=== PATIENT | female | born 1990 | race African-American/Black ===

== ENCOUNTER 2016-12-28 09:11 | Emergency (ER) | payer MEDICAID, OTHER ==
[~2016-12-28] VITALS: Ht 180.3 cm; Wt 98.0 kg
[~2016-12-28 09:11] MED LIST: BACT800T5 PO; CORTI10A LEFT EAR
[2016-12-28 09:12] VITALS: BP 150/70; PULSE 83; RESP 14; TEMP 97.5; O2SAT 97
[2016-12-28] MEDS ORDERED: [UNRECOGNIZED DRUG - OTHER] (09:25)
--- NOTE | 2016-12-28 09:32 | PD ---
HPI Chief Complaint: GI Complaint Time Seen by Provider: 09:27 Travel History International Travel<30 days: No Contact w/Intl Traveler<30days: No Traveled to known affect area: No History of Present Illness HPI 26 -year-old female presents with body aches, nausea, cough and congestion over the past couple of days. She notes multiple sick contacts with her kids with similar symptoms. She states her kids got medication and are now better. She denies other concurrent complaints. She feels worse when she moves around. She denies increase in her nebulizer use and has not used it during this episode. She states she doesn't follow with a doctor regularly. She states her last menstrual cycle was in mid October and has not taken a test yet as she has irregular cycles. She had one prior that everything was okay with the but her daughter had to stay in the hospital little bit and also had pyloric stenosis at 1 week PFSH Past Medical History Asthma: Yes Diminished Hearing: No Respiratory: Yes (ASTHMA) ?: Unknown LMP: October : 1 Para: 1 Past Surgical History Tonsillectomy: Yes Social History Alcohol Use: No (VERY RARELY) Tobacco Use: No Substance Use: No (PT DENIES) Allergies-Medications (Allergen,Severity, Reaction): Coded Allergies: Latex (Verified Allergy, Intermediate, Rash, 03/22/16) Reported Meds & Prescriptions Reported Meds & Active Scripts Active Macrobid (Nitrofurantoin Monoh/Nitrofur Macro) 100 Mg Cap 100 Mg PO BID 5 Days Reported [nebuliver] Review of Systems Except as stated in HPI: all other systems reviewed are Neg Physical Exam Narrative General: No apparent distress, well appearing ENT: Posterior oropharyngx clear without exudate or erythema, external auditory canals are normal. Bilateral TM clear Neck: Neck is supple, no meningeal signs, trachea is midline Cardiovascular: Regular rate and rhythm Lungs: No increased respiratory effort noted, CTA bilaterally Abdomen: Soft, NT, ND Extremities: No edema Neuro: Awake, motor and sensation grossly intact, normal speech Data Data Last Documented VS Vital Signs Date Time Temp Pulse Resp B/P Pulse Ox O2 Delivery O2 Flow Rate FiO2 12/28/16 09:23 17 12/28/16 09:12 97.5 83 150/70 97 Orders Ed Urine Pregnancytest Poc (12/28/16 09:27) Urinalysis - C+S If Indicated (12/28/16 09:27) Influenzae A/B Antigen (12/28/16 09:27) Beta Hcg (Quant/Titer) (12/28/16 10:03) Us Pelvis (Ques Pr/Ect)W Trans (12/28/16 ) Labs Laboratory Tests Test 12/28/16 12/28/16 09:30 10:25 Urine Color YELLOW Urine Turbidity HAZY Urine pH 7.0 Urine Specific [place] 1.018 Urine Protein NEG mg/dL Urine Glucose (UA) NEG mg/dL Urine Ketones 40 mg/dL Urine Occult Blood TRACE Urine Nitrite NEG Urine Bilirubin NEG Urine Urobilinogen LESS THAN 2.0 MG/DL Urine Leukocyte Esterase LARGE Urine RBC 3 /hpf Urine WBC 5 /hpf Urine Squamous Epithelial 20 /hpf Cells Urine Renal Epithelial Cells <1 /hpf Urine Mucus FEW /lpf Microscopic Urinalysis Comment CULT NOT INDICATED Human Chorionic Gonadotropin, [address] MIU/ML Quant MDM Medical Decision Making Medical Screen Exam Complete: Yes Emergency Medical Condition: Yes Medical Record Reviewed: Yes (past history confirmed) Interpretation(s) poc beta is positive ua with ?contamination, given will treat Ultrasound with 6 week IUP, subchorionic hemorrhage-given copy for follow-up Differential Diagnosis URI, seasonal allergies, , UTI, otitis media, pharyngitis..... Narrative Course Will check point in care beta, urinalysis, influenza and reevaluate Given positive beta looked with bedside ultrasound and appears to be gestational sac but unable to visualize full pole with limited imaging so we will proceed with beta Quant and ultrasound given intermittent abdominal pain. Patient has no vaginal bleeding or other concurrent complaints. Blood type on file is O+. Patient updated Ultrasound with IUP with subchorionic hemorrhage, patient agrees to supportive care for cold, Patient denies any new complaints, all questions answered. Patient knows that follow up is incumbent on them and to return to the emergency room immediately if new or worsening symptoms develop. Patient given strict return precautions, vitals reviewed and are normal, agrees to further workup as an outpatient. Diagnosis Primary Impression: Qualified Code: Z3A.01 - Less than 8 weeks gestation of Additional Impression: Upper respiratory infection Qualified Code: J06.9 - Upper respiratory tract infection, unspecified type Patient Instructions: General Instructions Additional Instructions: return as needed, set up an ob doctor, tylenol as needed for pain Med/Other Pt SpecificInfo: Prescription(s) given Scripts Nitrofurantoin Monohydrate Macrocrystals (Macrobid)100 Mg Gut319 Mg PO BID 5 Days Prov:Racheal Melo MD 12/28/16 Disposition: 01 DISCHARGE HOME Condition: Stable Racheal Melo MD Dec 28, 2016 09:32
[2016-12-28 10:04] LABS: BLOOD, URINE TRACE (NEG); GLUCOSE,URINE NEG (NEG); KETONE, URINE 40 mg/dL (NEG); MUCUS URINE FEW /lpf (OCC); NITRITE,URINE NEG (NEG); RENAL EPITHELIAL CELLS <1 /hpf; SQUAMOUS EPITHELIAL CELL URINE 20 /hpf (0-5); URINE COLOR YELLOW (YELLW/STRAW)
[2016-12-28 10:05] LABS: COMMENT (UR) CULT NOT INDICATED; CULTURE IF INDICATED CULT NOT INDICATED
[2016-12-28 11:18] LABS: BETA HCG QUANT 26397 MIU/ML (0-5)
--- NOTE | 2016-12-28 12:27 | RADRPT ---
EXAM DATE/TIME: 12/28/2016 11:08 [facility] COMPARISON: No previous studies available for comparison. INDICATIONS : Pelvic pain. LAB(S): Beta-hC MEDICAL HISTORY : . Asthma. SURGICAL HISTORY : Tonsillectomy. ENCOUNTER: Initial ACUITY: 1 day PAIN SCORE: 4/10 LOCATION: Bilateral pelvis MEASUREMENTS: UTERUS: 11.2 x 7.2 x 5.7 cm ENDOMETRIAL STRIPE: 8 mm RIGHT OVARY: 3.1 x 1.5 x 1.6 cm LEFT OVARY: 2.7 x 2.6 x 2.0 cm FINDINGS: Intrauterine gestational sac, yolk sac and pole noted at approximately 6 weeks gestational age. heart tones are demonstrated. There is a complex fluid collection adjacent to the gestational sac that measures about 23 x 17 x 20 mm typical of a small subchorionic hemorrhage. Ovaries are normal. Trace free fluid in the pelvic cul-de-sac. CONCLUSION: Early, single viable intrauterine with a subchorionic hemorrhage. No ectopic. Cedric Angel MD on December 28, 2016 at 12:23 Board Certified Radiologist. This report was verified electronically.
[2016-12-28] MEDS ORDERED: MACR100C2 PO (12:33)
[2016-12-28 12:58] VITALS: BP 126/71
[2017-03-05] MEDS ORDERED: METR0.7528 VAGINAL (14:02)
[2017-03-05] MEDS ORDERED: PREN1CAP7 PO (14:02)
[2017-03-11] MEDS ORDERED: METR0.7528 VAGINAL ×2 (10:39→13:46)
[2017-03-11] MEDS ORDERED: PREN1CAP7 PO (13:46)
== END 2016-12-28 12:59 | disposition home or self-care (01) ==
LOC: NEPA 09:11
DX: O26.891 Other specified pregnancy related conditions, first trimester (principal); J06.9 Acute upper respiratory infection, unspecified; R05 Cough; Z87.09 Personal history of other diseases of the respiratory system; Z3A.01 Less than 8 weeks gestation of pregnancy
CPT/HCPCS: 76700; 76817; 81001; 84702; 84703; 87804

== ENCOUNTER 2017-04-01 14:46 | Emergency (ER) | payer MEDICAID ==
[~2017-04-01 14:46] MED LIST changes: -BACT800T5 PO; -CORTI10A LEFT EAR; +METR0.7528 VAGINAL; +PREN1CAP7 PO; +[UNRECOGNIZED DRUG - OTHER]
[2017-04-01] MEDS ORDERED: ACETAMINOPHEN 325 MG TAB PO ONE (15:30)
--- NOTE | 2017-04-01 15:42 | PD ---
HPI Chief Complaint Pelvic pain Date Seen: April 01, 2017 Time Seen: 15:20 Travel History International Travel<30 Days: No Contact w/Intl Traveler<30Days: No Known Affected Area: No History of Present Illness HPI Patient is a 26-year-old at 18 weeks and 2 days who presents with pelvic pain. Patient reports that this pain started about 4-5 days ago and has been gradually getting worse. She describes the pain as located between her thigh and privates, radiating to her lower back. She describes it as a tearing sensation that similar to after she delivered her daughter via vaginal delivery. She currently denies any pain because she is at rest. She reports that the pain is exacerbated by walking, getting up and down. She is denying any leakage of fluid, vaginal being, contractions. She endorses movement at baseline. She reports that she has a headache pretty much all the time, for which Tylenol does not help. She occasionally gets blurry vision and dizziness associated with these headaches. She currently is only complaining of a toothache. She denies any chest pain, shortness of breath, right upper quadrant pain, visual changes, edema, fever, chills, dysuria, flank pain. She reports getting occasional abdominal pain that feels like her menstrual cramps; she says she gets a few of these a day. Para: 1 : 3 Miscarriage: 1 History Past Medical History Narrative Medical Patient reports a past medical history of asthma occasionally treated with albuterol nebulizer, but she has not needed this in a while, migraines, acid reflux Obstetric History Obstetric History Patient reports that she gave to her daughter at full-term via vaginal delivery with an uncomplicated . However her daughter developed transient tachypnea of the was put in the NICU for 1 day before going home with mom. Her daughter also had pyloric stenosis. Patient also endorses a history of a missed period and then a heavy abnormal menses, which she believes to be a miscarriage. Past Surgical History Narrative Surgical Patient reports history of tonsillectomy and adenoidectomy. Family History Narrative Family History Patient denies any family history of problems during . She reports that her mother has borderline hypertension and her father has type 2 diabetes. Social History Narrative Social History The patient lives with her and her daughter. She cares for her ' s 3 other kids every other week. Alcohol Use: No Tobacco Use: No Substance Abuse: No Allergies-Medications (Allergen,Severity, Reaction): Coded Allergies: Latex (Verified Allergy, Intermediate, Rash, 03/05/17) Home Meds Active Scripts Metronidazole Vaginal Gel (Metrogel Vaginal Gel)0.75 % Gel1 Appl VAGINAL HS #1 TUBE Ref 0 Prov:Diamond Mack CNM ART EDUCATOR 03/11/17 W/O Vit A W/ Fe Fumar (Citranatal [place])27-1-260 Mg Cap1 Cap PO DAILY #60 CAP Ref 5 Prov:Diamond Mack CNM ART EDUCATOR 03/11/17 Metronidazole Vaginal Gel (Metrogel Vaginal Gel)0.75 % Gel1 Appl VAGINAL HS #1 TUBE Ref 0 Prov:Diamond Mack CNM ART EDUCATOR 03/11/17 Reported Medications [nebuliver] No Conflict Check 12/28/16 Review of Systems General / Constitutional: No: Fever, Chills Eyes: No: Blurred Vision, Visual changes HENT: No: Headaches Cardiovascular: No: Chest Pain or Discomfort, Edema Respiratory: No: Short of Breath Gastrointestinal: No: Nausea, Vomiting, Abdominal Pain Genitourinary: No: Dysuria Neurologic: No: Headache Physical Exam Afebrile vital signs stable and within normal limits. Narrative GENERAL: Well-nourished, well-developed patient. SKIN: Warm and dry. HEAD: Normocephalic and atraumatic. EYES: No scleral icterus. No injection or drainage. ENT: No nasal drainage noted. Mucous membranes pink. Airway patent. NECK: Supple, trachea midline. No JVD. CARDIOVASCULAR: Regular rate and rhythm without murmurs, gallops, or rubs. RESPIRATORY: Breath sounds equal bilaterally. No accessory muscle use. ABDOMEN/GI: Abdomen soft, non-tender, bowel sounds present, no rebound, no guarding Gravid to 18 weeks size FHT's: Assessed with bedside Doppler. heart rate in the 140s. No contractions noted. EXTREMITIES: No cyanosis or edema. BACK: Nontender without obvious deformity. No CVA tenderness. NEUROLOGICAL: Awake and alert. Motor and sensory grossly within normal limits. Five out of 5 muscle strength in all muscle groups. Normal speech. Data Data Vital Signs Reviewed: Yes Orders Urinalysis - C+S If Indicated (04/01/17 15:19) Vital Signs (Adult) .ON ADMISSION (04/01/17 15:29) ^ Labor Status (04/01/17 15:29) ^ Hydration (04/01/17 15:29) Acetaminophen (Tylenol) (04/01/17 15:30) MDM Plan Patient is a 26-year-old at 18 weeks and 2 days who presents with 4-5 days of worsening pelvic pain exacerbated by movement. 1. Pelvic pain most likely due to musculoskeletal sprain or strain Tylenol Monitor vital signs Monitor heart tracing Encourage by mouth hydration UA Diagnosis Diagnosis: Primary Impression: Musculoskeletal pain Additional Impression: Normal Disposition: DISCHARGE HOME Condition: Luis Meek MD R1 April 01, 2017 15:42
[2017-04-01 16:07] LABS: BLOOD, URINE NEG (NEG); COMMENT (UR) CULT NOT INDICATED; CULTURE IF INDICATED CULT NOT INDICATED; GLUCOSE,URINE NEG (NEG); KETONE, URINE NEG (NEG); NITRITE,URINE NEG (NEG); PH, URINE 6.5 (5.0-8.5); SQUAMOUS EPITHELIAL CELL URINE 5 /hpf (0-5); URINE COLOR YELLOW (YELLW/STRAW)
[2017-05-15] MEDS ORDERED: ZANT150T2 PO (10:08)
== END 2017-04-01 16:22 | disposition home or self-care (01) ==
LOC: HOBED 14:46
DX: O26.892 Other specified pregnancy related conditions, second trimester (principal); K08.89 Other specified disorders of teeth and supporting structures; R10.9 Unspecified abdominal pain; Z3A.18 18 weeks gestation of pregnancy
CPT/HCPCS: 81001; 99283

== ENCOUNTER 2017-08-13 12:10 | Emergency (ER) | payer MEDICAID ==
[~2017-08-13 12:10] MED LIST changes: +ALBU6.7H INH; +AMOX500T PO; -METR0.7528 VAGINAL; +PREN1TAB14 PO; +ZANT150T2 PO
--- NOTE | 2017-08-13 13:05 | PD ---
HPI Chief Complaint fatigue Date Seen: Aug 13, 2017 Travel History International Travel<30 Days: No Contact w/Intl Traveler<30Days: No History of Present Illness HPI 26 yo @ 38w4d. care at [facility]. Patient presents with c/o "feeling warm like hot flashes", denies fever. Also c /o fatigue for past several weeks and occasional HAs. No visual changes, normal diet. No N/V. No abdominal pain. No UC, LOF, VB. +FM History Past Medical History Narrative Medical Migraine HAs Asthma Obstetric History Obstetric History SAB x 1 2014 term Past Surgical History Narrative Surgical T&A Family History Family History: Negative Social History Alcohol Use: No Tobacco Use: No Substance Abuse: No Allergies-Medications (Allergen,Severity, Reaction): Coded Allergies: latex (Unverified Allergy, Intermediate, Rash, 07/31/17) Home Meds Active Scripts Vit W/ Docusate-Fe Fu (Pnv Ferrous Fumarate/Docu 29-1 mg) 29 Mg Iron-1 Mg-25 Mg Tab, 1 CAPLET PO DAILY, #30 CAPLET Prov:Aidee Hernandez 07/31/17 Amoxicillin (Amoxicillin) 500 Mg Tab, 500 MG PO TID for Infection, #21 TAB 0 Refills Prov:Mayra Garza 07/28/17 Albuterol 6.7 GM Inh (Proventil Hfa 6.7 GM Inh) 90 Mcg/Act Aer, 1 PUFF INH Q4H Y for SHORTNESS OF BREATH, #1 INHALER 1 Refill Prov:Jesse Black MD 07/24/17 Ranitidine (Zantac) 150 Mg Tab, 150 MG PO BID for Reduce Stomach Acid, #60 TAB 6 Refills Prov:Mayra GarzaP 05/15/17 W/O Vit A W/ Fe Fumar (Citranatal [place]) 27-1-260 Mg Cap, 1 CAP PO DAILY for Nutritional Supplement, #60 CAP 5 Refills Prov:Diamond Mack CNM MEASURER 03/11/17 Reported Medications [nebuliver] No Conflict Check 12/28/16 Review of Systems General / Constitutional: No: Fever, Chills Eyes: No: Blurred Vision HENT: Headaches, Lightheadedness Cardiovascular: No: Chest Pain or Discomfort, Palpitations Respiratory: No: Cough Gastrointestinal: No: Nausea, Vomiting, Diarrhea, Abdominal Pain Genitourinary: No: Urgency, Frequency, Dysuria, Discharge, Vaginal Bleeding Musculoskeletal: No: Limited ROM, Weakness Skin: No Rash, No Itching, No Lesions Neurologic: No: Syncope, Focal Abnormalities Physical Exam Narrative GENERAL: Well-nourished, well-developed patient. NAD SKIN: Warm and dry. HEAD: Normocephalic and atraumatic. EYES: No scleral icterus. No injection or drainage. ENT: No nasal drainage noted. Mucous membranes pink. Airway patent. NECK: Supple, trachea midline. No JVD. CARDIOVASCULAR: Regular rate RESPIRATORY: No accessory muscle use. ABDOMEN/GI: Abdomen soft, non-tender, no rebound, no guarding Gravid GENITOURINARY: External Genitalia: intact and normal in appearance BUS glands: [-] SVE: FT/25%/high TOCO: FHT's: Category: I Baseline: 130 Reactive: + Variability: mod Decels: Had single deceleration noted, resolved. Monitored for hour our more , CAT I EXTREMITIES: No cyanosis or edema. BACK: Nontender without obvious deformity. No CVA tenderness. NEUROLOGICAL: Awake and alert. Motor and sensory grossly within normal limits. Five out of 5 muscle strength in all muscle groups. Normal speech. Data Data Vital Signs Reviewed: Yes Orders Orders Vital Signs (Adult) .ON ADMISSION (08/13/17 13:01) ^ Labor Status (08/13/17 13:01) ^ Non Stress Test (08/13/17 13:01) ^ Hydration (08/13/17 13:01) Acetaminophen (Tylenol) (08/13/17 13:15) MDM Narrative Course / MDM 38 weeks Uncomplicated related fatigue, no anemia Headache in , resolved with Tylenol Normal BPs, VSS No s/s labor Oral hydration FHT had a single small deceleration with resolution. Reassuring for past hour. Plan d/c home Tylenol PRN F/u with OB tomorrow for HAI Labor precautions Diagnosis Diagnosis: Primary Impression: related fatigue in third trimester Additional Impressions: headache in third trimester 38 weeks gestation of Kiana English MD Aug 13, 2017 13:05
[2017-08-13] MEDS ORDERED: ACETAMINOPHEN 500 MG CPLT PO ONE (13:15)
[2017-08-13 15:13] VITALS: RESP 16
== END 2017-08-13 15:00 | disposition home or self-care (01) ==
LOC: HOBED 12:10
DX: O26.893 Other specified pregnancy related conditions, third trimester (principal); R53.83 Other fatigue; R51 Headache; J45.909 Unspecified asthma, uncomplicated; Z3A.38 38 weeks gestation of pregnancy
CPT/HCPCS: 59025

== ENCOUNTER 2017-08-29 20:39 | Inpatient (IN) | payer MEDICAID ==
[~2017-08-29] VITALS: Ht 180.3 cm; Wt 116.0 kg
[~2017-08-29 20:39] MED LIST changes: -AMOX500T PO
[2017-08-29 21:30] VITALS: RESP 18; TEMP 98.3
[2017-08-29] MEDS ORDERED: ZANT150T2 PO (21:34)
[2017-08-29] MEDS ORDERED: PREN1TAB63 (21:34)
[2017-08-29] MEDS ORDERED: LACTATED RINGER'S 1000 ML INJ 1,000 ML IV PRN (21:51)
[2017-08-29] MEDS ORDERED: SODIUM CHLORID 0.9% 500 ML INJ 500 ML IV PRN (22:00)
[2017-08-29] MEDS ORDERED: MINERAL OIL 10 ML VIAL TOPICAL PRN (22:00)
[2017-08-29] MEDS ORDERED: LIDOCAINE HCL 1% 50 ML VIAL INFIL PRN (22:00)
[2017-08-29] MEDS ORDERED: LIDOCAINE HCL 1% 50 ML VIAL I-DERMAL PRN (22:00)
[2017-08-29] MEDS ORDERED: CITRIC ACID-SODIUM CITRATE LIQ 30 ML UDC PO SCH (22:00)
[2017-08-29] MEDS ORDERED: LACTATED RINGER'S 1000 ML INJ 1,000 ML IV SCH (22:00)
[2017-08-29] MEDS ORDERED: ONDANSETRON HCL 4 MG/2 ML VIAL IV PUSH PRN (22:00)
[2017-08-29] MEDS ORDERED: OXYTOCIN 30 UNITS-500ML PREMIX 500 ML IV ONE (22:00)
[2017-08-29] MEDS ORDERED: PENICILLIN G POTASSIUM INJ 5,000,000 UNITS in SODIUM CHLORIDE 0.9% INJ 100 ML IV ONE (22:00)
--- NOTE | 2017-08-29 22:06 | HHI.HP ---
HPI Chief Complaint Induction of Labor Date Seen: Aug 29, 2017 Time Seen: 22:08 (Hayley Awad MD R1) Travel History International Travel<30 Days: No Contact w/Intl Traveler<30Days: No Known Affected Area: No (Hayley Awad MD R1) History of Present Illness HPI Patient is a 26-year-old at 40 weeks and 6 days who presents for scheduled induction of labor. Patient has received care [facility]. Patient is GBS positive. She denies contractions, bleeding, fluid leakage. She endorses appropriate movement. Of note, patient has past medical history significant of asthma. Weeks Gestation: 40 Para: 1 : 3 Miscarriage: 1 (Hayley Awad MD) History Past Medical History Narrative Medical Asthma (Hayley Awad MD) Obstetric History Obstetric History (Hayley Awad MD R1) Past Surgical History Narrative Surgical Tonsillectomy - fifth grade (Hayley Awad MD) Family History Family History: Negative (Hayley Awad MD) Social History Alcohol Use: No Tobacco Use: No Substance Abuse: No (Hayley Awad MD R1) Allergies-Medications (Allergen,Severity, Reaction): Coded Allergies: latex (Unverified Allergy, Intermediate, Rash, 08/27/17) Home Meds Reported Medications Ranitidine (Zantac) 150 Mg Tab, 150 MG PO BID for Reduce Stomach Acid, #60 TAB 0 Refills 08/29/17 Multivit-Min W/Fe-FA ( Vitamins 0.8 mg) 1 Tab Tab 08/29/17 Review of Systems Except as stated in HPI: all other systems reviewed are Neg (Hayley Awad MD R1) Physical Exam Narrative GENERAL: Well-nourished, well-developed patient. SKIN: Warm and dry. HEAD: Normocephalic and atraumatic. EYES: No scleral icterus. No injection or drainage. ENT: No nasal drainage noted. Mucous membranes pink. Airway patent. NECK: Supple, trachea midline. No JVD. CARDIOVASCULAR: Regular rate and rhythm without murmurs, gallops, or rubs. RESPIRATORY: Breath sounds equal bilaterally. No accessory muscle use. BREASTS: Bilateral exam showed no masses , no retractions, no nipple discharge. ABDOMEN/GI: Abdomen soft, non-tender, bowel sounds present, no rebound, no guarding Gravid to 40 weeks size GENITOURINARY: External Genitalia: intact and normal in appearance Cervix: Posterior Dilatation: 0 cm Effacement: Soft Presentation: Vertex Membranes: Intact Uterine Contractions: None FHT's: Category: 1 Baseline: 150 Reactive: Positive Variability: Moderate Decels: None EXTREMITIES: No cyanosis or edema. Large bruise/lesion on left lateral knee. BACK: Nontender. NEUROLOGICAL: Awake and alert. Motor and sensory grossly within normal limits. Five out of 5 muscle strength in all muscle groups. Normal speech. (Hayley Awad MD R1) Caprini VTE Risk Assessment Caprini VTE Risk Assessment: No/Low Risk (score <= 1) (Hayley Awad MD R1) Data Data Vital Signs Reviewed: Yes Orders Orders Admit To Inpatient (08/29/17 ) Code Status (08/29/17 21:51) Vital Signs (Adult) .Per protocol (08/29/17 21:51) Heart (08/29/17 21:51) Amnioinfusion (08/29/17 21:51) Urinary Catheter Management .ONCE (08/29/17 21:51) Diet Liquid (08/30/17 Breakfast) Lactated Ringer's 1000 Ml Inj (Lr 1000 M (08/29/17 22:00) Lactated Ringer's 1000 Ml Inj (Lr 1000 M (08/29/17 21:51) Sodium Chlorid 0.9% 500 Ml Inj (Ns 500 M (08/29/17 22:00) Sodium Chlor 0.9% 1000 Ml Inj (Ns 1000 M (08/29/17 22:11) Lidocaine 1% Inj (50 Ml) (Xylocaine 1% I (08/29/17 22:00) Citric Acid-Sodium Citrate Liq (Bicitra (08/29/17 22:00) Ondansetron Inj (Zofran Inj) (08/29/17 22:00) Fentanyl Inj (Fentanyl Inj) (08/29/17 22:00) Fentanyl Inj (Fentanyl Inj) (08/29/17 22:00) Penicillin G Potassium Inj (Pfizerpen-G (08/29/17 22:00) Penicillin G Potassium Inj (Pfizerpen-G (08/30/17 02:00) Complete Blood Count With Diff (08/29/17 21:51) Hold Clot (08/29/17 21:51) Abo/Rh Blood Type (08/29/17 21:51) Resp Oxygen Non Rebreathe Mask (08/29/17 ) ^ Epidural / Intrathecal Infus (08/29/17 21:51) Oxytocin 30 Units-500ml Premix (Pitocin (08/29/17 22:00) Lidocaine 1% Inj (50 Ml) (Xylocaine 1% I (08/29/17 22:00) Light Mineral Oil (Muri-Lube Oil) (08/29/17 22:00) Inpatient Certification (08/29/17 ) ^ Labor Induction (08/29/17 21:51) ^ Vaginal Insert (08/29/17 21:51) ^ Vaginal Lavage (08/29/17 21:51) Heart (08/29/17 21:51) Misoprostol Supp (Cytotec Supp) (08/30/17 02:00) (Hayley Awad MD R1) Assessment/Plan Problem List: (1) ICD Codes: Z33.1 - state, incidental Status: Acute Qualifiers: Qualified Codes: Z3A.40 - 40 weeks gestation of Assessment and Plan Patient is a 26-year-old at 40 weeks and 6 days who presents for scheduled induction of labor. Patient has received care at [facility]. Patient is GBS positive. 1. * Category 1 tracing; continues monitoring. 2. GBS positive * Penicillin G 5,000,000 units once IV now. * Penicillin G 2,500,000 units q4hr IV. 3. Induction of Labor * Cytotec 25 mcg once vaginal once. * Cytotec 25 mcg PRN vaginal until cervical ripening. 4. Headache * Tylenol 650 mg q4hr PO. 5. Asthma, history (Hayley Awad MD R1) Attending Attestation Patient seen and evaluated with resident under direct supervision, agree with assessment and plan. (Daniel Reyes MD) Hayley Awad MD R1 Aug 29, 2017 22:06 Daniel Reyes MD Aug 30, 2017 05:35
[2017-08-29] MEDS ORDERED: SODIUM CHLOR 0.9% 1000 ML INJ 1,000 ML IV PRN (22:11)
[2017-08-29] MEDS ORDERED: MISOPROSTOL 25 MCG SUPP VAGINAL ONE (22:15)
[2017-08-29] MEDS ORDERED: ACETAMINOPHEN 325 MG TAB PO PRN (22:15)
[2017-08-29 22:20] LABS: AUTOMATED NEUTROPHIL # 11.3 TH/MM3 (1.8-7.7); BASOPHIL % 0.3 % (0.0-2.0); EOSINOPHIL # 0.1 TH/MM3 (0-0.4); EOSINOPHIL % 0.5 % (0.0-4.0); HEMATOCRIT 33.5 % (35.0-46.0); HEMO FLAGS DIFF FINAL; LYMPH % 11.5 % (9.0-44.0); LYMPHOCYTE # 1.6 TH/MM3 (1.0-4.8); MEAN CELL VOLUME 91.6 FL (80.0-100.0); MEAN CORPUSCULAR HEMOGLOBIN 30.7 PG (27.0-34.0); MEAN CORPUSCULAR HGB CONC 33.5 % (32.0-36.0); MONO % 8.3 % (0.0-8.0); NEUT % 79.4 % (16.0-70.0); PLATELET COUNT 297 TH/MM3 (150-450); RED BLOOD COUNT 3.66 MIL/MM3 (4.00-5.30); RED CELL DISTRIBUTION WIDTH 14.7 % (11.6-17.2); WHITE BLOOD COUNT 14.2 TH/MM3 (4.0-11.0)
[2017-08-29] MEDS ORDERED: MISOPROSTOL 100 MCG TAB VAGINAL ONE (22:30)
[2017-08-29] MEDS ORDERED: MISOPROSTOL 100 MCG TAB VAGINAL PRN (22:30)
[2017-08-30] VITALS (46 sets, daily range): BP systolic 81–150; BP diastolic 42–123; PULSE 72–206; RESP 16–18; TEMP 98.1–98.5; O2SAT 100
[2017-08-30] MEDS ORDERED: fentaNYL 2MCG-BUPIV 0.125% INJ 100 ML ONE (00:29)
[2017-08-30] MEDS ORDERED: ePHEDrine/NS 25 MG/5 ML SYR ONE ×2 (00:41→01:41)
[2017-08-30] MEDS ORDERED: BUPIVACAINE HCL PF 0.25% 10 ML VIAL ONE (00:41)
[2017-08-30 01:51] LABS: BLOOD, URINE NEG (NEG); CALCIUM OXALATE CRYSTALS,URINE OCC /hpf; COMMENT (UR) CULT NOT INDICATED; CULTURE IF INDICATED CULT NOT INDICATED; GLUCOSE,URINE NEG (NEG); KETONE, URINE NEG (NEG); MUCUS URINE FEW /lpf (OCC); NITRITE,URINE NEG (NEG); URINE COLOR YELLOW (YELLW/STRAW)
[2017-08-30] MEDS ORDERED: PENICILLIN G POTASSIUM INJ 2,500,000 UNITS in SODIUM CHLORIDE 0.9% INJ 100 ML IV SCH (02:00)
[2017-08-30] MEDS ORDERED: MISOPROSTOL 25 MCG SUPP VAGINAL PRN (02:00)
--- NOTE | 2017-08-30 03:34 | PD.LABORPN ---
Subjective Subjective Resting in bed comfortably, epidural in place. No concerns. (Alec Taet MD R2) Objective Vital Signs Vital Signs Date Time Temp Pulse Resp B/P (MAP) Pulse Ox O2 Delivery O2 Flow Rate FiO2 08/30/17 02:30 87 117/77 (90) 08/30/17 02:15 81 123/65 (84) 08/30/17 02:00 18 08/30/17 01:45 98.3 18 08/30/17 01:31 84 108/42 (64) 08/30/17 01:20 87 100 08/30/17 01:15 83 100 08/30/17 01:15 125/77 (93) 08/30/17 01:13 82 127/67 (87) 08/30/17 01:10 93 100 08/30/17 01:05 79 100 08/30/17 01:01 206 139/45 (76) 08/30/17 01:00 84 100 08/30/17 00:57 94 135/81 (99) 08/30/17 00:55 92 136/79 (98) 08/30/17 00:55 100 08/30/17 00:51 92 144/88 (106) 08/30/17 00:50 99 100 08/30/17 00:48 97 142/95 (111) 08/30/17 00:45 93 100 08/30/17 00:43 149/101 (117) 08/30/17 00:43 80 08/30/17 00:40 78 08/30/17 00:35 72 148/88 (108) 08/30/17 00:35 80 08/30/17 00:30 89 08/30/17 00:30 100 08/29/17 21:30 98.3 18 Objective Pelvic Exam: Cervix: midposition Dilatation: 6 cm Effacement: 80% Station: -2 Presentation: vertex Membranes: SROM @ midnight Uterine Contractions: not all picking up, but approx Q5 min FHT's: Category: 2 Baseline: 140 Reactive: N Variability: moderate Decels: recurrent variables Maternal BP low after epidural, ephedrine given, decelerations resolving, tracing improving to category 1. Will continue to monitor. Weeks Gestation: 40 Gest Age Assessed Date: Aug 29, 2017 Gest Age Assessed Time: 22:00 Pt started active labor?: Yes Active labor start date: Aug 30, 2017 Active labor start time: 00:00 Medical induction of labor?: Yes Medical induction start date: Aug 29, 2017 Medical induction start time: 22:00 Artificial rupture of membrane: No (Alec Tate MD R2) Assessment/Plan Problem List: (1) ICD Codes: Z33.1 - state, incidental Status: Acute Qualifiers: Qualified Codes: Z3A.40 - 40 weeks gestation of Assessment and Plan Patient is a 26-year-old at 41 weeks admitted for IOL 1. IUP * Category 1 tracing; continuous monitoring. 2. GBS positive * Continue PPX with PCN G 3. Induction of Labor * S/p Cytotec 4. Headache * Tylenol 650 mg q6h PRN 5. Asthma, history * Monitor; consider albuterol if wheezing develops (Alec Tate MD R2) Assessment and Plan Patient seen and evaluated with resident under direct supervision, agree with assessment and plan. (Daniel Reyes MD) Alec Tate MD R2 Aug 30, 2017 03:34 Daniel Reyes MD Aug 30, 2017 05:38
[2017-08-30] MEDS ORDERED: LACTATED RINGER'S 1000 ML INJ 1,000 ML IV SCH (04:00)
[2017-08-30] MEDS ORDERED: SODIUM CHLORIDE 0.9% FLUSH 10 ML FLUSH IV FLUSH PRN (05:30)
[2017-08-30] MEDS ORDERED: ONDANSETRON ODT 4 MG TAB PO PRN (05:30)
[2017-08-30] MEDS ORDERED: ALUMINUM/MAGNESIUM/SIMETH 30 ML CUP PO PRN (05:30)
[2017-08-30] MEDS ORDERED: ZOLPIDEM TARTRATE 5 MG TAB PO PRN (05:30)
[2017-08-30] MEDS ORDERED: WITCH HAZEL 50%/GLYCERIN 12.5% 40 PAD JAR TOPICAL PRN (05:30)
[2017-08-30] MEDS ORDERED: BENZOCAINE 20% TOPICAL SPRAY 60 ML CAN TOPICAL PRN (05:30)
[2017-08-30] MEDS ORDERED: OXYTOCIN 30 UNITS-500ML PREMIX 500 ML IV SCH (05:30)
--- NOTE | 2017-08-30 05:30 | PD.OB.DELI ---
Weeks gestation: 41 Gest age assessed date: Aug 29, 2017 Gest age assessed time: 22:00 Pt started active labor?: Yes Active labor start date: Aug 30, 2017 Active labor start time: 00:00 Medical induction of labor?: Yes Medical induction start date: Aug 29, 2017 Medical induction start time: 22:00 Artificial rupture of membrane: No Anesthesia: Epidural Episiotomy: None Vaginal Delivery: Normal, Spontaneous Presentation: Vertex Nuchal Cord: x1 Delayed cord clamping (45 sec): No Infant: Male Delivery date: Aug 30, 2017 Delivery time: 05:10 One Minute : 6 Five Minute : 8 Weight: 4270g Placenta: Spontaneous delivery, Intact, 3 vessel cord Laceration: No lacerations Estimated blood loss: 350mL Additional Information Delivering Provider: Hayley Awad Supervising Resident: Alec Tate Attending Present: Daniel Reyes (Hayley Awad MD R1) Additional Information Patient seen and evaluated with resident under direct supervision, agree with assessment and plan. (Daniel Reyes MD) Hayley Awad MD R1 Aug 30, 2017 05:30 Daniel Reyes MD Aug 30, 2017 05:41
[2017-08-30 05:35] LABS: BLOOD GAS BASE EXCESS -3.2 mmol/L (-2-2); BLOOD GAS O2 HGB SATURATION 82 % (90-100); CORD BLOOD GAS HCO3 21 mmol/L (21-29); CORD BLOOD GAS PCO2 36 mmHG (34-78); CORD BLOOD GAS PH 7.39 (7.14-7.42); CORD BLOOD GAS PO2 40 mmHG (3.0-40.0); DRAW SITE CORD BLOOD
[2017-08-30 05:36] LABS: STAT YES
[2017-08-30] MEDS ORDERED: DEXTROSE (INFANT/PEDS) GEL 2.5 ML/GM (40%) TUBE ONE (05:55)
[2017-08-30] MEDS: IBUPROFEN 600 MG TAB PO PRN ×3 (08:56→20:27)
[2017-08-30] MEDS: ACETAMINOPHEN 325 MG TAB PO PRN ×3 (08:57→20:27)
[2017-08-30] MEDS ORDERED: SODIUM CHLORIDE 0.9% FLUSH 10 ML FLUSH IV FLUSH SCH (09:00)
[2017-08-30] MEDS: DOCUSATE SODIUM 50 MG/SENNA 8.6 MG TAB PO PRN (14:29)
[2017-08-30] MEDS: FAMOTIDINE 20 MG TAB PO PRN ×2 (14:29→20:31)
[2017-08-30] MEDS ORDERED: DIPHTH/TETANUS/ACEL PERTUSSIS (BOOSTER) 0.5 ML VIAL/PFS IM ONE (16:00)
[2017-08-30] MEDS ORDERED: MEASLES, MUMPS, RUBELLA VACCINE 0.5 ML VIAL SQ ONE (16:00)
[2017-08-31] MEDS: DOCUSATE SODIUM 50 MG/SENNA 8.6 MG TAB PO PRN (02:43)
[2017-08-31] MEDS: IBUPROFEN 600 MG TAB PO PRN ×3 (02:44→18:11)
[2017-08-31] MEDS: ACETAMINOPHEN 325 MG TAB PO PRN ×3 (02:44→18:12)
[2017-08-31 08:08] VITALS: BP 119/77; PULSE 71; RESP 18; TEMP 98.7
[2017-08-31] MEDS: FAMOTIDINE 20 MG TAB PO PRN (08:27)
--- NOTE | 2017-08-31 08:38 | HHI.OB ---
Subjective Post Day: 1 Remarks day # 1. AFVSS overnight. Pain well-controlled. Decreased lochia. Denies dysuria. No breast tenderness. Appetite good. No nausea or vomiting. Endorses flatus. No bowel movement. Ambulating well. Denies calf pain, shortness of breath, or cough. Otherwise, she is doing well this morning and has no other complaints. Objective Vitals/I&O Vital Signs Date Time Temp Pulse Resp B/P (MAP) Pulse Ox O2 Delivery O2 Flow Rate FiO2 08/31/17 08:08 119/77 (91) 08/31/17 08:08 98.7 71 18 Objective Remarks GENERAL: Well-nourished, well-developed patient. CARDIOVASCULAR: Regular rate and rhythm without murmurs, gallops, or rubs. RESPIRATORY: Breath sounds equal bilaterally. No accessory muscle use. ABDOMEN/GI: Abdomen soft, non-tender. Fundus: Firm, non-tender at umbilicus. GENITOURINARY: Light to moderate bleeding. EXTREMITIES: No cyanosis or edema, non-tender, without signs of DVT. Medications and IVs Current Medications Medications (Trade) Dose Ordered Sig/Marina Route Start Time Stop Time Status Last Admin (Cytotec) 25 mcg ONCE PRN VAGINAL 08/29/17 22:30 09/01/17 22:29 (NS Flush) 2 ml BID IV FLUSH 08/30/17 09:00 (NS Flush) 2 ml UNSCH PRN IV FLUSH 08/30/17 05:30 (Tylenol) 650 mg Q4H PRN PO 08/30/17 05:30 08/31/17 08:27 (Motrin) 600 mg Q6H PRN PO 08/30/17 05:30 08/31/17 08:27 (Americaine 20% Top Spr) 1 spray Q4H PRN TOPICAL 08/30/17 05:30 (Tucks Pads) 1 applic QID PRN TOPICAL 08/30/17 05:30 (Marisela-Colace) 2 tab Q12H PRN PO 08/30/17 05:30 08/31/17 02:43 (Ambien) 5 mg HS PRN PO 08/30/17 05:30 (Mag-Al Plus Susp Liq) 15 ml Q8H PRN PO 10/21/17 05:30 (Zofran Odt) 4 mg Q6H PRN PO 08/30/17 05:30 (Pepcid) 20 mg BID PRN PO 08/30/17 10:15 08/31/17 08:27 Assessment/Plan Assessment and Plan 26 y/o who is PPD# 1 s/p . -Continue routine care. -Percocet and Motrin PRN pain. -Encouraged OOB. Advised pelvic rest for 6 wks. -Will need a f/u appt. within 6 wks. -Re: ctrl, she would like oral contraceptives -D/c tomorrow Hemal Griffin MD, R2 Aug 31, 2017 08:38
[2017-08-31] MEDS ORDERED: ePHEDrine/NS 25 MG/5 ML SYR IV PUSH PRN (14:30)
[2017-08-31] MEDS ORDERED: NO SYSTEM NARCOTICS PRN (15:00)
[2017-08-31] MEDS ORDERED: DO NOT ADMINISTER ANTICOAGULANTS PRN (15:00)
[2017-08-31] MEDS ORDERED: fentaNYL 2MCG-BUPIV 0.125% 100 ML EPIDURAL SCH (15:00)
[2017-09-01] MEDS: ACETAMINOPHEN 325 MG TAB PO PRN (00:22)
[2017-09-01] MEDS: DOCUSATE SODIUM 50 MG/SENNA 8.6 MG TAB PO PRN (00:22)
[2017-09-01] MEDS: IBUPROFEN 600 MG TAB PO PRN ×2 (00:22→10:39)
[2017-09-01] MEDS ORDERED: NORE0.3513 PO (10:28)
--- NOTE | 2017-09-01 10:29 | HHI.DCPOC ---
Discharge Care Plan Diagnosis: (1) Normal vaginal delivery Report Symptoms to Your Doctor -Temperature above 100.5 degrees -Redness, of incision or excessive or foul smelling drainage -Unusual pain or calf pain -Increased vaginal bleeding -Painful or difficulty urinating -Feelings of extreme sadness or anxiety after 2 weeks Goals to Promote Your Health * To prevent worsening of your condition and complications * To maintain your health at the optimal level Directions to Meet Your Goals Take your medications as prescribed Follow your dietary instruction Follow activity as directed Ensure plenty of rest for recovery Drink fluids for hydration Keep your appointments as scheduled Take your immunizations and boosters as scheduled If your symptoms worsen call your PCP, if no PCP go to Urgent Care Center or Emergency Room Smoking is Dangerous to Your Health. Avoid second hand smoke Call the 24-hour crisis hotline for domestic abuse at Roro Escobedo MD R1 Sep 01, 2017 10:28
--- NOTE | 2017-09-01 11:28 | HHI.OB ---
Subjective Remarks 26 year old female s/p at 41 wks gestation, PPD 2. AFVSS. Patient reports she is feeling well. Bleeding is decreasing and pain is well- controlled. She is breast and formula feeding and bonding well with baby. Ambulating without difficulties. She is tolerating a diet without nausea or vomiting. She has not had a bowel movement. She has passed gas. Denies chest pain, dysuria, shortness of breath, or calf pain. Objective Objective Remarks GENERAL: Well-nourished, well-developed patient. CARDIOVASCULAR: Regular rate and rhythm without murmurs, gallops, or rubs. RESPIRATORY: Breath sounds equal bilaterally. No accessory muscle use. ABDOMEN/GI: Abdomen soft, non-tender. Fundus: Firm, non-tender just below umbilicus. GENITOURINARY: Light to moderate bleeding. EXTREMITIES: No cyanosis or edema, non-tender, without signs of DVT. Medications and IVs Current Medications Medications (Trade) Dose Ordered Sig/Marina Route Start Time Stop Time Status Last Admin (Cytotec) 25 mcg ONCE PRN VAGINAL 08/29/17 22:30 09/01/17 22:29 (NS Flush) 2 ml BID IV FLUSH 08/30/17 09:00 (NS Flush) 2 ml UNSCH PRN IV FLUSH 08/30/17 05:30 (Tylenol) 650 mg Q4H PRN PO 08/30/17 05:30 09/01/17 00:22 (Motrin) 600 mg Q6H PRN PO 08/30/17 05:30 09/01/17 10:39 (Americaine 20% Top Spr) 1 spray Q4H PRN TOPICAL 08/30/17 05:30 (Tucks Pads) 1 applic QID PRN TOPICAL 08/30/17 05:30 (Marisela-Colace) 2 tab Q12H PRN PO 08/30/17 05:30 09/01/17 00:22 (Ambien) 5 mg HS PRN PO 08/30/17 05:30 (Mag-Al Plus Susp Liq) 15 ml Q8H PRN PO 08/30/17 05:30 (Zofran Odt) 4 mg Q6H PRN PO 08/30/17 05:30 (Pepcid) 20 mg BID PRN PO 08/30/17 10:15 08/31/17 08:27 Miscellaneous Information No systemic narcotics to be given except... UNSCH PRN .XX 08/31/17 15:00 09/01/17 14:59 Miscellaneous Information DO NOT ADMINISTER ANY ANTICOAGUL... UNSCH PRN .XX 08/31/17 15:00 09/01/17 14:59 Fentanyl/ Bupivacaine HCl 100 ml @ 0 mls/hr TITRATE EPIDURAL 08/31/17 15:00 (ePHEDrine/NS 25 MG/5 ML SYR) 10 mg UNSCH PRN IV PUSH 08/31/17 14:30 09/01/17 14:29 Assessment/Plan Problem List: (1) ICD Codes: Z33.1 - state, incidental Status: Acute Qualifiers: Qualified Codes: Z3A.40 - 40 weeks gestation of Assessment and Plan 26 y/o who is PPD #2 s/p . -Continue routine care. -Motrin PRN pain. -Encouraged OOB. Advised pelvic rest for 6 wks. -Will need a f/u appt. within 6 wks. -Re: ctrl, she would like oral contraceptives -D/c today Alec aTte MD R2 Sep 01, 2017 11:28
== END 2017-09-01 14:43 | disposition home or self-care (01) | DRG 775 ==
LOC: H2EB 20:39 → H2EA 21:05 → H1EA 08-30 07:53
PROVIDERS: ADMIT Obstetrics & Gynecology; ATTEND Obstetrics & Gynecology
PROC: 3E0P7VZ Introduction of Hormone into Female Reproductive, Via Natural or Artificial Opening (ICD-10-PCS; 2017-08-29)
PROC: 10E0XZZ Delivery of Products of Conception, External Approach (ICD-10-PCS; principal; 2017-08-30)
DX: O48.0 Post-term pregnancy (principal); J45.909 Unspecified asthma, uncomplicated; O99.824 Streptococcus B carrier state complicating childbirth; O99.52 Diseases of the respiratory system complicating childbirth; R51 Headache; O76 Abnormality in fetal heart rate and rhythm complicating labor and delivery; O69.81X0 Labor and delivery complicated by cord around neck, without compression, not applicable or unspecified; Z37.0 Single live birth; Z3A.41 41 weeks gestation of pregnancy; Z91.040 Latex allergy status
CPT/HCPCS: 59025; 81001; 82805; 85025; 90715; J2590; J7120